=== PATIENT | male | born 1975 | race American Indian/Alaskan Native ===

== ENCOUNTER 2018-01-22 01:09 | Emergency (ER) | payer OTHER, MEDICAID, SELFPAY ==
[2018-01-22 01:15] VITALS: BP 132/91; PULSE 78; RESP 15; TEMP 35.9; O2SAT 97
--- NOTE | 2018-01-22 01:15 | ED.ALCOHOL ---
HPI - Alcohol General Chief Complaint: Toxicology Problem Stated Complaint: ETOH Time Seen by Provider: 01/22/18 01:15 Source: patient, family and EMS Mode of arrival: EMS Limitations: no limitations History of Present Illness HPI narrative: patient is a 42-year-old male with a history of CVA with right-sided upper and lower extremity deficits and also speech deficits came in by EMS after they were called to the [facility] for the patient passing out. EMS states that they got a very poor history from the casino staff. Family who is at bedside also states that they were not with him when he passed out. Was that the patient was at the black track table when he seemed to pass out. No reported seizure activity. EMS and family both state that the reports the patient has been drinking. Patient does have right-sided deficits however this is not new. Patient arrived not on a backboard not in a cervical collar. Related Data Allergies Allergy/AdvReac Type Severity Reaction Status Date / Time No Known Drug Allergies Allergy Verified 01/22/18 01:15 Review of Systems Review of Systems Somewhat limited due to intoxication Constitutional Denies headache(s) Eyes Denies blurry vision and Denies diplopia ENT Ears, Nose, Mouth, and Throat: Denies vertigo, Denies dizziness and Denies headache(s) Cardiovascular Denies chest pain, Denies syncope, Denies palpitations and Denies dyspnea Respiratory Denies dyspnea Gastrointestinal Gastrointestinal: Denies abdominal pain Musculoskeletal Denies back pain, Denies myalgias and Denies arthralgias Integumentary/Breasts Denies lesions and Denies rash Neurologic Denies behavioral changes, Denies vertigo, Denies dizziness, Denies syncope and Denies headache(s) Psychiatric Denies behavioral changes Endocrine Denies palpitations Hematologic/Lymphatic Denies easy bleeding and Denies easy bruising [facility] Medical History CVA (cerebral vascular accident) (Acute) Surgical History No pertinent past surgical history (Acute) Exam Initial Vital Signs Initial Vital Signs: Vital Signs Temperature 96.7 F L 01/22/18 01:15 Pulse Rate 78 01/22/18 01:15 Respiratory Rate 15 01/22/18 01:15 Blood Pressure 132/91 H 10/07/18 01:15 Pulse Oximetry 97 10/07/18 01:15 Const General: cooperative, well developed, well groomed and No acute distress Orientation: alert, awake, oriented to person and oriented to place [facility] Head: normal to inspection and normocephalic Resp Effort & Inspection: normal respiratory effort Auscultation: clear to auscultation bilaterally Cardio Rate: regular rate Rhythm: regular rhythm GI Inspection: non-distended Palpation: soft and No tender Back/Spine/Pelvis Cervical Spine: No cervical spinal tenderness, No step off deformity and No cervical ROM abnormal Skin Lesions: no lesions Rashes: no rashes Neuro General: alert and awake Cranial Nerves: CN's II-XI intact bilaterally Other: 3/5 strength right upper and right lower extremity. 5/5 strength left upper and lower extremity Extrem General: capillary refill normal Course Orders Ordered: ED Orders 01/22/18 01:24 Basic Metabolic Panel Stat Complete Blood Count AUTO DIFF Stat Ethanol (ETOH) Stat 01/22/18 01:25 CT head/brain wo con Stat Discontinued Medications Magnesium Sulfate 2 gm/ Folic Acid 1 mg/ Thiamine HCl 100 mg / Multivitamins 10 ml/ Sodium Chloride 1,015.2 mls @ 125 mls/hr IV NOW ONE Stop: 01/22/18 09:30 Vital Signs - 8 hr 01/22/18 01:15 Temperature 96.7 F L Pulse Rate 78 Respiratory Rate 15 Blood Pressure 132/91 H Pulse Oximetry 97 MDM - Alcohol Imaging Data CT scan - head: Radiologist's impression: no acute intracranial process is identified. Mild to moderate age-related atrophic change. Mild to moderate age-related ischemic demyelination of the white matter. Encephalomalacia in the left middle cerebral artery territory likely representing sequela of old left middle cerebral artery territory infarction. No interval hemorrhagic transformation. Left parietal craniotomy. Stable compared to prior study MDM Narrative Medical decision making narrative: patient at baseline per family member who is at bedside. No signs of trauma. Neurologically at baseline per the family was at bedside. Does have right-sided deficits but this is not new. Head CT shows no new changes. Will hold on further radiologic studies for now. Patient was given return precautions. Family members given return precautions. They both expressed understanding and agreement plan Discharge Plan Departure Patient Disposition: Home Clinical Impression: Alcoholic intoxication, Fall Instructions: Alcohol Use Disorder, How to Prevent Falls Activity Restrictions/Additional Instructions: recommend that you contact your primary care doctor to discuss your alcohol use. No driving for the next 24 hr or in the future if you decided to partake in intoxicating substances. Return to the emergency department for any new or worsening symptoms
--- NOTE | 2018-01-22 01:25 | DI.CT.S_ITS ---
PROCEDURE: CT HEAD/BRAIN WO CON INDICATIONS: AMS hx of stroke TECHNIQUE: Noncontrast 4.5 mm thick angled axial sections acquired from the foramen magnum to the vertex, with coronal and sagittal reformats. For radiation dose reduction, the following was used: automated exposure control, adjustment of mA and/or kV according to patient size. COMPARISON: [facility], CT, BRAIN (TPA), 03/04/2015, 15:22. [facility], CT, HEAD WITHOUT CONTRAST, 12/02/2016, 3:11. FINDINGS: Image quality: Excellent. CSF spaces: Basal cisterns are patent. No extra-axial fluid collections. Ventricles are within normal limits, noting ex vacuo dilation of the posterior horn of the left ventricle secondary to adjacent encephalomalacia. Brain: No midline shift. No intracranial masses or hemorrhage. Babb-white matter interface is normal. Left frontal temporal parietal encephalomalacia is present consistent with old ischemia. Skull and face: Calvarium and visualized facial bones are intact, without suspicious lesions. Sinuses: Visualized sinuses and mastoids are clear. IMPRESSION: 1. No acute intracranial process. Dictated by: Jordyn Pina M.D. on 01/22/2018 at 9:23 Approved by: Jordyn Pina M.D. on 01/22/2018 at 9:24
--- NOTE | 2018-01-22 01:52 | PC.NURSE ---
pt brought in by ems from the [facility] where he had been drinking since 2pm. pt was not willing to communicate with ems or our provider. Pt did not participate in provider exams. pt is now moving all four extremities, sitting up, laughing and talking loudly with friends/family. when this nurse entered the room to asses pt again layed calm and quiet and did not participate in any assesments. Provider notified and aknowledged this information.
[2018-01-22 02:53] VITALS: BP 128/92
--- NOTE | 2018-01-26 16:37 | PC.NURSE ---
spoke with patient. pt has follow up appointments this week. pt asking about his coat he left. had housekeeping check lost and found. coat was found. pt was called and told his coat is here and in the patient belongings cupboard in ED, pt states he would be here in a bout an hour to pick it up.
== END 2018-01-22 02:59 | disposition home or self-care (01) ==
PROVIDERS: Emergency Provider Emergency Medicine
DX: F10.929 Alcohol use, unspecified with intoxication, unspecified (principal); W19.XXXA Unspecified fall, initial encounter
CPT/HCPCS: 70450; 99282; 99284

== ENCOUNTER 2023-04-28 21:27 | Emergency (ER) | payer OTHER, MEDICAID, SELFPAY ==
[2023-04-28] VITALS (7 sets, daily range): BP systolic 116–126; BP diastolic 78–85; PULSE 73–86; RESP 13–24; TEMP 36.4; O2SAT 89–96
--- NOTE | 2023-04-28 21:28 | DI.RAD.S_ITS ---
PROCEDURE: XR CHEST 1V INDICATIONS: Possible stroke TECHNIQUE: One view of the chest was acquired. COMPARISON: [facility], , CHEST 1 VIEW, 01/06/2014, 10:10. FINDINGS: Surgical changes and devices: None. Lungs and pleura: Low lung volumes. Possible interstitial thickening. No pleural effusions or dense consolidation. Mediastinum: Borderline heart size. Bones and chest wall: Degenerative changes. IMPRESSION: Possible interstitial thickening may be an artifact of low lung volumes, versus edema or viral infection. No airspace consolidation or pleural effusion. Limited single view radiograph with low lung volumes. Dictated by: Saúl Dubon M.D. on 04/28/2023 at 22:58 Approved by: Saúl Dubon M.D. on 04/28/2023 at 22:59
--- NOTE | 2023-04-28 21:28 | DI.CT.S_ITS ---
PROCEDURE: CT STROKE INDICATIONS: Positive BE-FAST, Stroke symptoms TECHNIQUE: Noncontrast 4.5 mm thick angled axial sections acquired from the foramen magnum to the vertex, with coronal reformats. For radiation dose reduction, the following was used: automated exposure control, adjustment of mA and/or kV according to patient size. COMPARISON: [facility], CT, CT HEAD/BRAIN WO CON, 01/22/2018, 1:29. FINDINGS: Image quality: Good, diagnostic CSF spaces: Dilation of the left lateral ventricle due to volume loss. Basal cisterns are patent. Volume: Vascular calcifications. Periventricular white matter disease is commonly seen with chronic microangiopathy. Volume loss is present. These findings are mild to moderate Brain: Left frontal parietal encephalomalacia with seen in 2018. No acute new hemorrhage. No gross loss of edmond-white differentiation that is new. Craniofacial structures: Left craniotomy changes. IMPRESSION: No acute intracranial abnormality. Encephalomalacia of the left frontal temporal region is not acute. Discussed with Dr. Loera. Consider MRI if there is concern for acute infarct This study fulfills neurological imaging criteria for inclusion or exclusion of acute stroke therapies based on available published neurological imaging guidelines. Dictated by: Saúl Dubon M.D. on 04/28/2023 at 21:44 Approved by: Saúl Dubon M.D. on 04/28/2023 at 21:47
--- NOTE | 2023-04-28 21:28 | DI.CT.S_ITS ---
PROCEDURE: CT ANGIO HEAD AND NECK INDICATIONS: stroke like symptoms, left sided weakness TECHNIQUE: After the administration of intravenous contrast, 1 mm thick sections acquired from the aortic arch through the [place]. 3-dimensional vurnztj-bldipyrgx-fdavvinooy (MIP) and/or volume rendering reformats were acquired of the central intracranial vasculature and neck separately. For radiation dose reduction, the following was used: automated exposure control, adjustment of mA and/or kV according to patient size. COMPARISON: CT 01/22/2018 FINDINGS: Image quality: Moderate motion artifact HEAD ANGIOGRAPHY: Anterior circulation: ICAs: Moderate to severe narrowing bilaterally the cavernous and supraclinoid segments ACAs: Normal and symmetric MCAs: Normal and symmetric AComm: No aneurysm Venous sinuses: Not well assessed. Postprocedural vascular changes of the left cfakik-kl-Rntvlb region. Posterior circulation: Dominance: Equal Vertebral arteries: No stenosis or occlusion. No aneurysm. Basilar artery: Unremarkable PComms: No aneurysm reefer engineer: origin of the left MANNEQUIN MOLDER. Patent where visualized. NECK ANGIOGRAPHY: Aortic arch and subclavian arteries: Normal flow, no aneurysm. CCAs: No stenosis, occlusion, or aneurysm. ICA origins (by NASCET criteria): No hemodynamically significant narrowing. Mild calcifications on the left ICAs: No stenosis, occlusion or aneurysm. ECAs: Origins are patent. Vertebral arteries: Vertebral arteries are patent where visualized. The left origins not well seen due to adjacent contrast bolus. Soft tissues: Indeterminate borderline enlarged cervical, hilar, mediastinal lymph nodes. Lung apices: Dependent atelectasis and possible additional airspace consolidations. Bones: Degenerative changes. Left craniotomy changes. IMPRESSION: High-grade narrowing is seen at the bilateral cavernous and supraclinoid carotid arteries. There is also moderate narrowing of the intracranial right vertebral artery. No acute large vessel occlusion. Noncontrast head CT findings are separately dictated. Indeterminate borderline enlarged cervical, hilar, and mediastinal lymph nodes. Possible airspace disease and atelectasis at the lung apices. Multiple postsurgical/postprocedural findings as above. Consider MRI to further evaluate for infarct. Moderate motion artifact Any quantitative measurements of stenosis were performed using NASCET criteria. Dictated by: Saúl Dubon M.D. on 04/28/2023 at 22:18 Approved by: Saúl Dubon M.D. on 04/28/2023 at 22:26
[2023-04-28 22:00] LABS: INR 1.1 (0.9-1.3); Prothrombin Time 12.5 SECONDS (9.4-12.5)
[2023-04-28 22:03] LABS: PTT Partial Thromboplastin Tim 57 SECONDS (25.1-36.5)
[2023-04-28 22:06] LABS: Alanine Aminotransferase 103 IU/L (<50); Albumin 5.2 g/dL (3.5-5.0); Alkaline Phosphatase 65 U/L (38-126); Aspartate Aminotransferase 99 IU/L (17-59); BUN Creatinine Ratio 7.8 (6-22); Bilirubin Total 1.1 mg/dL (0.2-1.3); Blood Urea Nitrogen 7 mg/dL (9-20); Calcium 9.7 mg/dL (8.4-10.2); Carbon Dioxide 25 mmol/L (22-32); Chloride 104 mmol/L (98-107); Creatine Kinase 138 U/L (55-170); Estimated Glomerular Filt Rate > 60 mL/min (>60); Globulin 5.1 g/dL (1.7-4.1); Glucose 121 mg/dL (70-100); HEMOLYSIS < 15 (0-50); Magnesium 2.1 mg/dL (1.6-2.3); Potassium 3.8 mmol/L (3.4-5.1); Sodium 144 mmol/L (137-145); Total Protein 10.3 g/dL (6.3-8.2)
--- NOTE | 2023-04-28 22:12 | ED_ITS ---
HPI - Neuro Symptoms/Deficit General Chief Complaint: Neuro Symptoms/Deficit Stated Complaint: L weakness, possible stroke Time Seen by Provider: 04/28/23 21:32 Source: EMS Mode of arrival: EMS History of Present Illness HPI Narrative: 48-year-old gentleman with a history of prior CVA and right upper and lower extremity deficits along with speech deficits with alcohol use disorder. Brought in by medics with reports that he had been drinking at a bar much of the afternoon and he fell off his bar stool. They were concerned with slurred speech and right-sided weakness. On initial presentation patient appears to intoxicated to participate in exam or history taking. He is not oriented to person, time, place or events. Related Data Allergies Allergy/AdvReac Type Severity Reaction Status Date / Time No Known Drug Allergies Allergy Verified 01/22/18 01:15 Review of Systems Review of Systems ROS Unobtainable: Unobtainable due to mental status/LOC Patient History Medical History (Updated 04/29/23 @ 01:26 by Jocelin Loera MD) CVA (cerebral vascular accident) Surgical History No pertinent past surgical history alcohol intake frequency: 3 or more drinks per day Substance Use Type: does not use Exam Initial Vital Signs Initial Vital Signs: Vital Signs Temperature 97.6 F 04/28/23 21:27 Pulse Rate 86 04/28/23 21:27 Respiratory Rate 16 04/28/23 21:27 Blood Pressure 123/85 04/28/23 21:27 Pulse Oximetry 89 L 04/28/23 21:27 Oxygen Delivery Method Room Air 04/28/23 21:27 General: Chronically ill-appearing, protecting his airway, slurred speech, smells strongly of alcohol. No facial droop. Difficulty following commands and answering questions. HEENT: Moist mucous membranes, normal sclera with reactive pupils, left-sided scalp scar, question prior craniotomy Respiratory: Lungs are clear to auscultation, no wheezing no rales no rhonchi. Full and symmetrical air movement Cardiac: Regular rate and rhythm no murmurs no bruits Abdomen: Soft, nontender, good bowel tones, no flank pain Skin: Warm and dry, multiple psoriatic plaques Neurologic: He appears acutely intoxicated. Slurred speech, right arm and leg are slightly weak which is his reported baseline. He is globally weak as well. NIH score is difficult to assess at this time due to presumed acute intoxication Extremities: No trauma, well perfused Psych: Not oriented to person time and place. Does try to cooperate with exam and requests Course Orders Ordered: ED Orders 04/28/23 21:[address] angio head and neck Stat XR chest 1V Stat EKG-12 Lead Stat 04/28/23 21:55 Complete Blood Count AUTO DIFF Stat Comprehensive Metabolic Panel Stat Ethanol (ETOH) Stat Magnesium Stat PTT Partial Thromboplastin [place] Stat Prothrombin Time INR Stat Troponin & CK Cardiac Panel Stat 04/28/23 22:20 Urine Drug Screen, Rapid Stat Discontinued Medications Ondansetron HCl (Ondansetron 4 Mg/2 Ml Inj) 4 mg IV NOW PRN PRN Reason: Nausea And Vomiting Ondansetron HCl (Ondansetron 4 Mg Odt) 4 mg SL NOW PRN PRN Reason: Nausea And Vomiting Vital Signs Vital signs: Vital Signs - 8 hr 04/28/23 21:27 04/28/23 21:44 04/28/23 21:46 Temperature 97.6 F Pulse Rate 86 85 Respiratory Rate 16 13 Blood Pressure 123/85 126/80 Pulse Oximetry 89 L 93 Oxygen Delivery Method Room Air Oxygen Flow Rate 04/28/23 21:46 04/28/23 22:00 04/28/23 22:00 Temperature Pulse Rate 79 74 Respiratory Rate 16 18 Blood Pressure 124/83 Pulse Oximetry 94 93 Oxygen Delivery Method Oxygen Flow Rate 04/28/23 22:30 04/28/23 22:30 04/28/23 23:00 Temperature Pulse Rate 73 Respiratory Rate 16 Blood Pressure 116/78 123/83 Pulse Oximetry 94 Oxygen Delivery Method Oxygen Flow Rate 04/28/23 23:00 04/28/23 23:30 04/28/23 23:30 Temperature Pulse Rate 73 79 Respiratory Rate 18 24 Blood Pressure 117/80 Pulse Oximetry 95 96 Oxygen Delivery Method Nasal Cannula Room Air Oxygen Flow Rate 2 04/29/23 00:00 04/29/23 00:00 04/29/23 00:30 Temperature Pulse Rate 82 Respiratory Rate 19 Blood Pressure 122/84 117/88 Pulse Oximetry 94 Oxygen Delivery Method Oxygen Flow Rate 04/29/23 00:30 04/29/23 01:00 04/29/23 01:00 Temperature Pulse Rate 79 79 Respiratory Rate 24 20 Blood Pressure 112/81 Pulse Oximetry 94 94 Oxygen Delivery Method Oxygen Flow Rate 04/29/23 01:30 04/29/23 01:30 Temperature Pulse Rate 80 Respiratory Rate 20 Blood Pressure 121/86 Pulse Oximetry 93 Oxygen Delivery Method Room Air Oxygen Flow Rate MDM - Neuro Symptoms/Deficit Lab Data 04/28/23 21:55 04/28/23 21:55 Labs: Lab Results 04/28/23 04/28/23 Range/Units 21:55 22:20 WBC 6.3 (4.5-11.0) X10^3/uL RBC 5.51 (4.5-5.9) X10^6/uL Hgb 18.1 H (13.5-17.5) g/dL Hct 51.1 (41-53) % MCV 92.8 (80-100) fL MCH 32.8 (26-34) PG MCHC 35.3 (30-36) % RDW 13.5 (11.6-14.8) % Plt Count 197 (150-400) X10^3/uL Neut % (Auto) 40.2 L (50-75) % Lymph % (Auto) 46.5 H (25-40) % [place] % (Auto) 5.5 (3-14) % Eos % (Auto) 6.5 H (2-4) % Baso % (Auto) 1.3 (0-2) % Neut # (Auto) 2500 (5690-4349) /uL Lymph # (Auto) 2900 (8053-3110) /uL [place] # (Auto) 300 (0-900) /uL Eos # (Auto) 400 (0-450) /uL Baso # (Auto) 100 (0-100) /uL PT 12.5 (9.4-12.5) SECONDS INR 1.1 (0.9-1.3) APTT 57 H (25.1-36.5) SECONDS Sodium 144 (137-145) mmol/L Potassium 3.8 (3.4-5.1) mmol/L Chloride 104 (98-107) mmol/L Carbon Dioxide 25 (22-32) mmol/L BUN 7 L (9-20) mg/dL Creatinine 0.90 (0.66-1.25) mg/dL Estimated GFR > 60 (>60) mL/min BUN/Creatinine Ratio 7.8 (6-22) Glucose 121 H (70-100) mg/dL Calcium 9.7 (8.4-10.2) mg/dL Magnesium 2.1 (1.6-2.3) mg/dL Total Bilirubin 1.1 (0.2-1.3) mg/dL AST 99 H (17-59) IU/L ALT 103 H (<50) IU/L Alkaline Phosphatase 65 (38-126) U/L Total Creatine Kinase 138 (55-170) U/L Troponin I 0.013 (0.01-0.034) ng/mL Total Protein 10.3 H (6.3-8.2) g/dL Albumin 5.2 H (3.5-5.0) g/dL Globulin 5.1 H (1.7-4.1) g/dL Albumin/Globulin Ratio 1.0 (1.0-2.8) U Opiates 300ng/mL cut Negative (Negative) Ur Oxycodone Screen Negative (Negative) Urine Methadone Screen Negative (Negative) Ur Barbiturates Screen Negative (Negative) U Tricyclic Antidepress Negative (Negative) Ur Phencyclidine Scrn Negative (Negative) Ur Amphetamines Screen Negative (Negative) U Methamphetamines Scrn Negative (Negative) Ur MDMA Scrn (Ecstasy) Negative (Negative) U Benzodiazepines Scrn Negative (Negative) Urine Cocaine Screen Negative (Negative) U Marijuana (THC) Screen Negative (Negative) Urine pH Normal (Normal) Urine Specific [place] Normal (Normal) Ethyl Alcohol 347 H ( - 10) mg/dL Ur Creatinine Normal (Normal) Point of Care Testing Glucose POC 116 Urine Dip Bedside Urine Glucose Negative Bedside Urine Bilirubin - Negative Bedside Urine Ketone - Negative Urine Specific [place] 1.005 Bedside Urine Occult Blood - Negative Bedside Urine pH 6.0 Bedside Urine Protein - Negative Bedside Urine Urobilinogen - Negative Bedside Urine Nitrite - Negative Bedside Urine Leukocytes - Negative Esterase MDM Narrative Medical decision making narrative: CC: Drinking at a bar, fell off his bar stool, did hit his head, concern for right-sided weakness and he was brought in as a code stroke Complicating co-morbidities: Prior stroke with known right-sided weakness, known alcohol use disorder Data collected from: patient, medics, prior records Medical records reviewed: Notes from [facility] reviewed. Prior stroke, hypertension, cholecystectomy, hyperlipidemia, psoriatic arthritis. Between Located within [facility] and [place] records it looks like his last interaction with medical care in the area was in 2018 Differential considered: Stroke, intracranial hemorrhage, acute alcohol intoxication, sepsis Exam documented above, pertinent findings include: Patient appears acutely intoxicated with alcohol. Pupils are small but reactive. He is right-sided weakness which was noted from his prior stroke. Global weakness overall. No other localizing findings. Lab Test results independently reviewed as above. Pertinent findings: CBC is unremarkable Chemistries show normal renal function, AST and ALT are elevated at 99 and 103 which seems to be close to his baseline. Alcohol level Independently reviewed EKG: Imaging studies independently reviewed: CT angiogram of the head and neck is interpreted by Radiology: High-grade narrowing at the bilateral cavernous and supraclinoid carotid arteries. Moderate narrowing of the intracranial right vertebral artery. No large vessel occlusion. Borderline enlarged cervical hilar and mediastinal lymph nodes. Possible airspace disease in the lung apex left side. Brain CT is interpreted by Radiology note made of left frontal parietal encephalomalacia as seen in 2018 with no acute hemorrhage. Left craniotomy changes are seen. No new bleeding or infarct is evident Treatments: Huseyin Re-evaluations:1am sister's available. She states that patient is currently at his baseline. He has sobered slightly. The cognitive function and right-sided weakness is unchanged. She would like to take him home and the patient would like to go home. Discussion: 48-year-old gentleman with prior stroke right-sided weakness and dysarthria/aphasia who was at the bar this evening had a couple of drinks fell off the bar stool and there was concern that he was having a new stroke. Does not appear that he is having a new stroke simply appears that he is intoxicated with alcohol and is metabolizing that appropriately. There was no obvious injury appreciated after his fall from a bar stool. No new intracranial hemorrhage or alternate concerns. Does not appear that he has had a recurrent stroke. Patient would like to be discharged and his sister who is sober and willing to assume care for him would like to take him home at this time. I believe that is safe and instructions are provided. Discharge Plan Departure Patient Disposition: Home Clinical Impression: Alcohol intoxication Qualifiers: Complication of substance-induced condition: uncomplicated Qualified Code(s): F 10920 - Alcohol use, unspecified with intoxication, uncomplicated Accidental fall from chair Qualifiers: Encounter type: initial encounter Qualified Code(s): W07.XXXA - Fall from chair, initial encounter Activity Restrictions/Additional Instructions: Thank you for coming in today We did a CT scan of your head with concerns for another stroke. Fortunately, I am not finding any new findings but can see the unchanged findings from your prior stroke. Your lab work is notable only for an alcohol level at 357 (legal level for driving is 80) You have been sleeping and recovering from your alcohol use nicely. Your sister has agreed to take you home and feels that you are close to your baseline. With your right-sided weakness, falling is always going to be an issue and using alcohol always increases your risk of falling. Please do what you can to keep yourself as safe possible. If you find that you are getting worse or develop any new symptoms, please feel free to return to the emergency department for further evaluation. Stand Alone Forms: Patient Portal/API
[2023-04-28 22:13] LABS: Ethanol (ETOH) 347 mg/dL
[2023-04-28 22:16] LABS: Troponin I 0.013 ng/mL (0.01-0.034)
[2023-04-28 22:18] LABS: Add Manual Diff / Slide Review NO; Basophils Absolute Auto 100 /uL (0-100); Basophils Percent Auto 1.3 % (0-2); Eosinophils Absolute Auto 400 /uL (0-450); Eosinophils Percent Auto 6.5 % (2-4); Hematocrit 51.1 % (41-53); Hemoglobin 18.1 g/dL (13.5-17.5); Lymphocytes Absolute Auto 2900 /uL (1100-4500); Lymphocytes Percent Auto 46.5 % (25-40); Mean Corpuscular HGB Conc 35.3 % (30-36); Mean Corpuscular Hemoglobin 32.8 PG (26-34); Mean Corpuscular Volume 92.8 fL (80-100); Monocytes Absolute Auto 300 /uL (0-900); Monocytes Percent Auto 5.5 % (3-14); Neutrophils Absolute Auto 2500 /uL (1500-7000); Neutrophils Percent Auto 40.2 % (50-75); Platelet Count 197 X10^3/uL (150-400); Red Blood Cell Count 5.51 X10^6/uL (4.5-5.9); Red Cell Distribution Width 13.5 % (11.6-14.8); White Blood Cell Count 6.3 X10^3/uL (4.5-11.0)
--- NOTE | 2023-04-28 22:20 | PC.NURSE ---
Unable to complete NIH Stroke Assessment @ this time secondary to pt's level of intoxication & lack of cooperation with test.
[2023-04-28 22:51] LABS: UR Morphine/Opiate cutoff 300 Negative (Negative); Ur Creatinine Normal (Normal); Ur Specific Gravity Normal (Normal); Urine Amphetamines Negative (Negative); Urine Barbiturates Negative (Negative); Urine Benzodiazepines Negative (Negative); Urine Cocaine Negative (Negative); Urine MDMA Negative (Negative); Urine Methadone Negative (Negative); Urine Methamphetamines Negative (Negative); Urine Oxycodone Negative (Negative); Urine Phencyclidine Negative (Negative); Urine Tetrahydrocannabinol Negative (Negative); Urine Tricyclic Antidepressant Negative (Negative); Urine pH Normal (Normal)
[2023-04-29] VITALS: BP 122/84; PULSE 82; RESP 19; O2SAT 94
[2023-04-29 00:30] VITALS: BP 117/88; PULSE 79; RESP 24; O2SAT 94
[2023-04-29 01:00] VITALS: BP 112/81; PULSE 79; RESP 20; O2SAT 94
[2023-04-29 01:30] VITALS: BP 121/86; PULSE 80; RESP 20; O2SAT 93
== END 2023-04-29 01:45 | disposition home or self-care (01) ==
PROVIDERS: Emergency Provider Emergency Medicine
DX: F10.920 Alcohol use, unspecified with intoxication, uncomplicated (principal); W07.XXXA Fall from chair, initial encounter
CPT/HCPCS: 36415; 70450; 70496; 70498; 71045; 80053; 80305; 80320; 81003; 82550; 82962; 83735; 84484; 85025; 85610; 85730; 93005; 93010; 99284; 99285; Q9967

== ENCOUNTER → 2024-06-08 17:09 | Outpatient (CLI) | payer OTHER, MEDICAID, SELFPAY ==
--- NOTE | 2024-06-08 17:14 | DI.RAD.S_ITS ---
PROCEDURE: XR FOOT RT MIN 3V INDICATIONS: CONTUSION R FOOT TECHNIQUE: 3 views of the foot were acquired. COMPARISON: None. FINDINGS: Bones: No fractures or dislocations. No suspicious bony lesions. Soft tissues: No tibiotalar joint effusion. Achilles tendon appears normal. IMPRESSION: No acute bony abnormality. Dictated by: Elieser Wilder M.D. on 06/09/2024 at 6:48 Approved by: Elieser Wilder M.D. on 06/09/2024 at 6:50
== END ==
PROVIDERS: Referring Provider Family Medicine; Visit Provider Family Medicine
DX: S90.31XA Contusion of right foot, initial encounter (principal); X58.XXXA Exposure to other specified factors, initial encounter
CPT/HCPCS: 73630

== ENCOUNTER → 2024-06-18 12:56 | Outpatient (CLI) | payer OTHER, MEDICAID, SELFPAY ==
--- NOTE | 2024-06-18 12:58 | DI.US.S_ITS ---
PROCEDURE: US ABDOMEN LIMITED INDICATIONS: WEAK ARTERIAL PULSE,ELEV LFT'S TECHNIQUE: Real-time scanning was performed of the abdominal and retroperitoneal organs, with image documentation. COMPARISON: [facility], CT, CT ANGIO CHEST ABDOMEN PELVIS, 06/11/2024, 20:57. FINDINGS: Liver: Liver is mildly enlarged measuring 17.8 cm. Liver is increased in echogenicity. Gallbladder: Surgically absent. Biliary ducts: Intrahepatic bile ducts are non-dilated. Extrahepatic bile duct caliber measures 4.3 mm. Normal is 6-7 mm or less in diameter, or 10 mm or less post-cholecystectomy. Pancreas: Visualized portions of the pancreas are sonographically normal. Miscellaneous: No free abdominal fluid. IMPRESSION: The liver is mildly enlarged and increased in echogenicity, most consistent with hepatic steatosis. Dictated by: Reed Mcnulty M.D. on 06/19/2024 at 9:48 Approved by: Reed Mcnulty M.D. on 06/19/2024 at 9:50
--- NOTE | 2024-06-18 12:58 | DI.US.S_ITS ---
PROCEDURE: US ART LOW EXT BILAT W/KARI INDICATIONS: WEAK ARTERIAL PULSE,ELEV LFT'S TECHNIQUE: Color and pulse Doppler interrogation was performed of both lower extremity arterial systems, with image documentation. KARI was also performed. COMPARISON: None. FINDINGS: Right lower extremity: Common femoral artery: 96 cm/sec, with triphasic flow. Deep femoral artery: 42 cm/sec, with triphasic flow. Proximal superficial femoral artery: 87 cm/sec, with triphasic flow. Mid superficial femoral artery: 92 cm/sec, with triphasic flow. Distal superficial femoral artery: 60 cm/sec, with triphasic flow. Popliteal artery: 67 cm/sec, with triphasic flow. Posterior tibial artery: 97 cm/sec, with biphasic flow. Anterior tibial artery/dorsalis pedis: 96 cm/sec, with biphasic flow. Babb-scale imaging description: No significant atherosclerotic disease KARI of 1.16. Left lower extremity: Common femoral artery: 71 cm/sec, with triphasic flow. Deep femoral artery: 45 cm/sec, with triphasic flow. Proximal superficial femoral artery: 93 cm/sec, with triphasic flow. Mid superficial femoral artery: 85 cm/sec, with triphasic flow. Distal superficial femoral artery: 74 cm/sec, with triphasic flow. Popliteal artery: 43 cm/sec, with triphasic flow. Posterior tibial artery: 50 cm/sec, with triphasic flow. Anterior tibial artery/dorsalis pedis: 111 cm/sec, with triphasic flow. Babb-scale imaging description: No significant atherosclerotic disease. KARI of 1.2. IMPRESSION: Patent lower extremity vasculature without hemodynamically significant stenosis. Normal bilateral KARI. Dictated by: Jose A Rosenberg M.D. on 06/18/2024 at 19:09 Approved by: Jose A Rosenberg M.D. on 06/18/2024 at 19:12
== END ==
PROVIDERS: Referring Provider Family Medicine; Visit Provider Family Medicine
DX: R09.89 Other specified symptoms and signs involving the circulatory and respiratory systems (principal); R16.0 Hepatomegaly, not elsewhere classified; R79.89 Other specified abnormal findings of blood chemistry; Z90.49 Acquired absence of other specified parts of digestive tract
CPT/HCPCS: 76705; 93922; 93925